=== PATIENT | female | born 1940 | race Caucasian/White ===

== ENCOUNTER 2016-09-23 12:56 | Emergency (ER) | payer MEDICARE ==
[~2016-09-23] VITALS: Ht 160 cm; Wt 90.0 kg
[2016-09-23 12:57] VITALS: BP 198/84; PULSE 56; RESP 15; TEMP 97.7; O2SAT 97
[2016-09-23] MEDS ORDERED: SODIUM CHLORIDE 0.9% FLUSH 5 ML FLUSH IVF PRN (16:00)
--- NOTE | 2016-09-23 16:06 | PD ---
HPI Chief Complaint: Flank/Kidney Pain Time Seen by Provider: 15:57 Travel History International Travel<30 days: No Contact w/Intl Traveler<30days: No Traveled to known affect area: No History of Present Illness HPI Patient is a 76-year-old female with a history of CAD, hypertension, RA on methotrexate presenting with chief complaint of right flank pain. She reports pain mostly in the right sahil-umbilical region intermittently for the last 2 weeks. Seems to be worse with eating especially fatty foods. Pain has been intermittent and "comes in waves ". Minor nausea without vomiting. Over the last several days the pain has begun radiating to the right lower quadrant, epigastrium and the right back and over the last 2 days it has become constant and worsening. The pain is sharp and stretching/tight in nature. Somewhat alleviated by lying flat and standing upright. Worsened by sitting. She denies dysuria, hematuria, increased or any urgency, frequency and vaginal bleeding or discharge. No history of abdominal surgeries. She denies fever and chills. She denies hematochezia, melena, diarrhea and constipation. Patient denies any trauma or injury. She denies any bowel or bladder dysfunction, saddle anesthesia, weakness or paresthesias in her legs. She denies any rashes. She has received shingles vaccine. She is on aspirin daily. Denies chest pain, wheezing, cough, dizziness and syncope. Endorses intermittent mild dyspnea, worse with activity. No pleuritic pain. PFSH Past Medical History Cardiovascular Problems: Yes ([place] 1997) Social History Tobacco Use: No Allergies-Medications (Allergen,Severity, Reaction): Coded Allergies: Morphine (Verified Allergy, Severe, Shortness of Breath, 09/23/16) Reported Meds & Prescriptions Reported Meds & Active Scripts Active Phenergan (Promethazine HCl) 25 Mg Tab 25 Mg PO Q6H PRN Lortab (Hydrocodone-Acetaminophen) 5-325 Mg Tab 1 Tab PO Q6H PRN Reported Vitamin D-3 (Cholecalciferol) 1,000 Unit Cap Turmeric (Turmeric (Curcuma Longa)) Unknown Strength Cap Unknown Dose PO DAILY Coq-10 (Coenzyme Q10 (Ubidecarenone)) Unknown Strength Cap Unknown Dose Fish Oil + D3 (Fish Oil-Cholecalciferol) 1,200-1,000 Mg-Unit Cap 1 Cap PO BID Aspirin 81 Mg Tabdr 81 Mg PO DAILY Metoprolol Tartrate 50 Mg Tab 50 Mg PO BID Pantoprazole (Pantoprazole Sodium) 40 Mg Tab 40 Mg PO DAILY Atorvastatin (Atorvastatin Calcium) 40 Mg Tab 40 Mg PO HS Methotrexate 2.5 Mg Tab 6 Tab PO Q7D Chlorthalidone 25 Mg Tab 25 Mg PO DAILY Losartan (Losartan Potassium) 50 Mg Tab 25 Mg PO BID Review of Systems Except as stated in HPI: all other systems reviewed are Neg Physical Exam Narrative GENERAL: Well-developed and well-nourished adult female in no acute distress. SKIN: Warm and dry. Good turgor without tenting. Evaluation of the thoracic and lumbosacral spine and abdomen and flank reveals no skin lesions. HEAD: Normocephalic and atraumatic. EYES: PERRL bilaterally, 5mm. EOMI bilaterally. No injection or icterus present. No proptosis. Lids without edema or erythema. ENT: Buccal mucosa pink and moist. Oropharynx free of erythema, tonsillar hypertrophy, masses, swelling, asymmetry and exudates. Uvula midline and airway patent. NECK: Supple, no meningeal signs. Trachea midline, no JVD. No cervical or facial lymphadenopathy. CARDIOVASCULAR: Regular rate and rhythm without murmurs, rubs, clicks or gallops. Radial and posterior tibial pulses 2+ bilaterally. No pedal edema. RESPIRATORY: Clear to auscultation bilaterally with symmetrical rise and fall, no distress or use of accessory muscles. GASTROINTESTINAL: Patient is diffusely tender in the epigastrium, right upper quadrant, right flank and right lower quadrant. Equivocal Mckeon sign, there is pain at McBurney's point. Negative Rovsing sign, positive obturator test. No rebound or guarding. No distention or discoloration. Normal bowel sounds all 4 quadrants. No masses or organomegaly present. Negative right CVA tenderness. MUSCULOSKELETAL: Patient freely moving all four extremities spontaneously. Extremities without clubbing, cyanosis, or edema. No obvious deformities. NEUROLOGIC: CN II-XII grossly intact. Awake and alert.Sensation intact L1-S2 bilaterally. Strength 5/5 in hip flexion, hip extension, knee flexion, knee extension, plantar flexion, dorsiflexion, and great toe flexion and extension bilaterally. Bilateral patellar and Achilles DTRs 2+. Downgoing Babinskis bilaterally. Normal speech. PSYCHIATRIC: Appropriate mood and affect; insight and judgment normal. Data Data Last Documented VS Vital Signs Date Time Temp Pulse Resp B/P Pulse Ox O2 Delivery O2 Flow Rate FiO2 09/23/16 20:53 60 15 156/108 97 Room Air 09/23/16 12:57 97.7 Orders Complete Blood Count With Diff (09/23/16 15:53) Comprehensive Metabolic Panel (09/23/16 15:53) Lipase (09/23/16 15:53) Prothrombin Time / Inr (Pt) (09/23/16 15:53) Act Partial Throm Time (Ptt) (09/23/16 15:53) Urinalysis - C+S If Indicated (09/23/16 15:53) Abdomen, Flat & Upright (09/23/16 ) Us Abdomen Gallbladder (09/23/16 ) Ecg Monitoring (09/23/16 15:53) Oximetry (09/23/16 15:53) NPO (09/23/16 15:53) Sodium Chloride 0.9% Flush (Ns Flush) (09/23/16 16:00) Electrocardiogram (09/23/16 15:53) Chest, Single Ap (09/23/16 15:53) B-Type Natriuretic Peptide (09/23/16 15:53) Troponin I (09/23/16 15:53) Cta Thor Abd Aorta W Iv C W3d (09/23/16 ) Hydromorphone Pf Inj (Dilaudid Pf Inj) (09/23/16 20:30) Ondansetron Inj (Zofran Inj) (09/23/16 20:30) Labs Laboratory Tests Test 09/23/16 09/23/16 00:00 18:10 B-Type Natriuretic Peptide 76 PG/ML White Blood Count 6.3 TH/MM3 Red Blood Count 4.18 MIL/MM3 Hemoglobin 12.0 GM/DL Hematocrit 35.9 % Mean Corpuscular Volume 85.9 FL Mean Corpuscular Hemoglobin 28.8 PG Mean Corpuscular Hemoglobin 33.5 % Concent Red Cell Distribution Width 16.7 % Platelet Count 209 TH/MM3 Mean Platelet Volume 8.5 FL Neutrophils (%) (Auto) 48.4 % Lymphocytes (%) (Auto) 36.0 % Monocytes (%) (Auto) 11.3 % Eosinophils (%) (Auto) 3.5 % Basophils (%) (Auto) 0.8 % Neutrophils # (Auto) 3.1 TH/MM3 Lymphocytes # (Auto) 2.3 TH/MM3 Monocytes # (Auto) 0.7 TH/MM3 Eosinophils # (Auto) 0.2 TH/MM3 Basophils # (Auto) 0.1 TH/MM3 CBC Comment DIFF FINAL Differential Comment Prothrombin Time 11.1 SEC Prothromb Time International 1.0 RATIO Ratio Activated Partial 25.2 SEC Thromboplast Time Urine Color YELLOW Urine Turbidity CLEAR Urine pH 6.0 Urine Specific [place] 1.013 Urine Protein NEG mg/dL Urine Glucose (UA) NEG mg/dL Urine Ketones NEG mg/dL Urine Occult Blood NEG Urine Nitrite NEG Urine Bilirubin NEG Urine Urobilinogen LESS THAN 2.0 MG/DL Urine Leukocyte Esterase NEG Urine RBC LESS THAN 1 /hpf Urine WBC LESS THAN 1 /hpf Urine Squamous Epithelial <1 /hpf Cells Microscopic Urinalysis Comment CULT NOT INDICATED Sodium Level 139 MEQ/L Potassium Level 3.7 MEQ/L Chloride Level 100 MEQ/L Carbon Dioxide Level 30.9 MEQ/L Anion Gap 8 MEQ/L Blood Urea Nitrogen 17 MG/DL Creatinine 0.71 MG/DL Estimat Glomerular Filtration 80 ML/MIN Rate Random Glucose 94 MG/DL Calcium Level 9.4 MG/DL Total Bilirubin 0.6 MG/DL Aspartate Amino Transf 16 U/L (AST/SGOT) Alanine Aminotransferase 29 U/L (ALT/SGPT) Alkaline Phosphatase 99 U/L Troponin I LESS THAN 0.02 NG/ML Total Protein 7.4 GM/DL Albumin 3.6 GM/DL Lipase 184 U/L [facility] Medical Decision Making Medical Screen Exam Complete: Yes Emergency Medical Condition: Yes Differential Diagnosis Cholecystitis versus renal calculi versus appendicitis versus gastritis versus peptic ulcer disease versus pyelonephritis versus shingles versus ACS versus CHF versus pneumonia versus AAA Narrative Course Workup initiated in triage. Once a medical bed becomes available patient will be transferred and care assumed by the next provider. Patient's a 76-year-old female with a history of CAD, hypertension and rheumatoid arthritis on methotrexate worsening with right flank pain intermittently for the last several weeks. Over the last several days has begun radiating to the epigastrium, right lower quadrant and right lower back. She is afebrile and nontoxic appearing. She denies any symptoms, diarrhea, constipation and blood in her stool. She said that her nausea without vomiting , pain is worse with eating fatty foods. Equivocal Mckeon sign, patient is pain at the McBurney's point and there is positive obturator test. Epigastric tenderness. No rebound or guarding. There is no rash suggestive of shingles and there is no CVA tenderness or urinary symptoms. She reports dyspnea which is worse with activity but denies chest pain. No cough or fever suggestive of pneumonia. Ordered EKG, chest x-ray, abdominal x-ray, right upper quadrant ultrasound and labs including lipase and troponin pending while patient to be transferred to a medical bed where CT will likely need to be done if no clear etiology is discovered on initial workup. Diagnosis Primary Impression: Abdominal pain Qualified Code: R10.11 - Right upper quadrant abdominal pain Scripts Promethazine (Phenergan)25 Mg Tab25 Mg PO Q6H PRN (Nausea/Vomiting) #20 TAB Ref 0 Prov:Marissa Rodriguez MD 09/23/16 Hydrocodone-Acetaminophen (Lortab)5-325 Mg Tab1 Tab PO Q6H PRN (PAIN) #20 TAB Ref 0 Prov:Marissa Rodriguez MD 09/23/16 Condition: Stable Ethan Ibrahim III Sep 23, 2016 16:06
--- NOTE | 2016-09-23 16:39 | RADRPT ---
EXAM DATE/TIME: 09/23/2016 16:12 [facility] COMPARISON: None. INDICATIONS : Right flank pain for 4 days MEDICAL HISTORY : None. SURGICAL HISTORY : None. ENCOUNTER: Initial ACUITY: 4 - 6 days PAIN SCORE: 8/10 LOCATION: Right flank FINDINGS: Supine and upright views of the abdomen were performed. The abdominal bowel gas pattern is normal. No air fluid levels are seen. No abnormal masses, calcifications, or organomegaly is seen. The visu alized lower lungs are clear. No evidence of free intraperitoneal gas. The osseous structures are g rossly intact scoliosis of the lumbar spine and associated degenerative changes. Right total hip arth roplasty. CONCLUSION: Radiographically benign abdomen without obstruction or pneumoperitoneum. No yvno l/ureteral calculi identified. Martin Blood MD Board Certified Radiologist. This report was verified electronically.
--- NOTE | 2016-09-23 16:45 | RADRPT ---
EXAM DATE/TIME: 09/23/2016 16:10 [facility] COMPARISON: No previous studies available for comparison. INDICATIONS : Chest discomfort, abdominal pain for 4 days MEDICAL HISTORY : Hypertension. SURGICAL HISTORY : None. ENCOUNTER: Initial ACUITY: 4 - 6 days PAIN SCORE: 0/10 LOCATION: Bilateral chest FINDINGS: A single view of the chest demonstrates the lungs to be symmetrically aerated without evidence of mas s, infiltrate or effusion. The cardiomediastinal contours are unremarkable. Osseous structures are intact. CONCLUSION: No acute disease. Ney Vasques MD on September 23, 2016 at 16:43 Board Certified Radiologist. This report was verified electronically.
--- NOTE | 2016-09-23 17:13 | RADRPT ---
EXAM DATE/TIME: 09/23/2016 16:26 [facility] COMPARISON: No previous studies available for comparison. INDICATIONS : Abdominal pain. MEDICAL HISTORY : Myocardial infarction. Hypertension. Arthritis. SURGICAL HISTORY : None. ENCOUNTER: Initial ACUITY: 4-6 days PAIN SCORE: 9/10 LOCATION: Right upper quadrant MEASUREMENTS: LIVER: 15.9 cm length COMMON DUCT: 4 mm RIGHT KIDNEY: 11.8 x 4.5 x 5.2 cm FINDINGS: LIVER: Normal echotexture without focal lesion or ductal dilatation. COMMON DUCT: No intraluminal mass or stone visualized. GALLBLADDER: The examination demonstrates sludge and some small stones within the gallbladder. There is no signifi cant gallbladder wall thickening. There is no pericholecystic fluid. The technologist did report a so nographic Mckeon's sign with the examination. PANCREAS: The visualized portions are within normal limits. RIGHT KIDNEY: No evidence of hydronephrosis, stone, or mass. CONCLUSION: 1. There is sludge within the gallbladder and some small gallstones. There is no para cholecystic flu id or gallbladder wall thickening. The patient did report significant pain consistent with sonographi c Mckeon's sign to the technologist during the examination. HIDA imaging could be performed for more definitive assessment. 2. Examination is otherwise unremarkable. Deejay Thomas MD on September 23, 2016 at 17:08 Board Certified Radiologist. This report was verified electronically.
[2016-09-23] MEDS ORDERED: METH2.5T PO (17:44)
[2016-09-23] MEDS ORDERED: PANT40TA3 PO (17:44)
[2016-09-23] MEDS ORDERED: ATOR40TA16 PO (17:44)
[2016-09-23] MEDS ORDERED: CHLO25TA2 PO (17:44)
[2016-09-23] MEDS ORDERED: METO50TA PO (17:44)
[2016-09-23] MEDS ORDERED: LOSA50TA PO (17:44)
[2016-09-23] MEDS ORDERED: ASPI1TAB69 PO (17:45)
[2016-09-23] MEDS ORDERED: TURM500C PO (17:45)
[2016-09-23] MEDS ORDERED: FISHCAP4 PO (17:45)
[2016-09-23] MEDS ORDERED: COQ-50CA2 (17:45)
[2016-09-23] MEDS ORDERED: CHOL1CAP6 PO (17:45)
[2016-09-23 18:52] LABS: AUTOMATED NEUTROPHIL # 3.1 TH/MM3 (1.8-7.7); BASOPHIL # 0.1 TH/MM3 (0-0.2); BASOPHIL % 0.8 % (0.0-2.0); BLOOD, URINE NEG (NEG); EOSINOPHIL # 0.2 TH/MM3 (0-0.4); EOSINOPHIL % 3.5 % (0.0-4.0); GLUCOSE,URINE NEG (NEG); HEMATOCRIT 35.9 % (35.0-46.0); HEMO FLAGS DIFF FINAL; KETONE, URINE NEG (NEG); LYMPHOCYTE # 2.3 TH/MM3 (1.0-4.8); MEAN CELL VOLUME 85.9 FL (80.0-100.0); MEAN CORPUSCULAR HEMOGLOBIN 28.8 PG (27.0-34.0); MEAN CORPUSCULAR HGB CONC 33.5 % (32.0-36.0); MONO % 11.3 % (0.0-8.0); NEUT % 48.4 % (16.0-70.0); NITRITE,URINE NEG (NEG); PLATELET COUNT 209 TH/MM3 (150-450); RED BLOOD COUNT 4.18 MIL/MM3 (4.00-5.30); RED CELL DISTRIBUTION WIDTH 16.7 % (11.6-17.2); SQUAMOUS EPITHELIAL CELL URINE <1 /hpf (0-5); URINE COLOR YELLOW (YELLW/STRAW); WHITE BLOOD COUNT 6.3 TH/MM3 (4.0-11.0)
[2016-09-23 18:55] LABS: COMMENT (UR) CULT NOT INDICATED; CULTURE IF INDICATED CULT NOT INDICATED
[2016-09-23 19:01] VITALS: BP 158/69; PULSE 60; RESP 15; O2SAT 97
[2016-09-23 19:03] LABS: APTT (PATIENT) 25.2 SEC (24.3-30.1); PROTHROMBIN TIME - PATIENT 11.1 SEC (9.8-11.6)
[2016-09-23 19:07] LABS: ANION GAP 8 MEQ/L (5-15); AST (GOT) 16 U/L (15-37); BICARBONATE 30.9 MEQ/L (21.0-32.0); BLOOD UREA NITROGEN 17 MG/DL (7-18); CHLORIDE 100 MEQ/L (98-107); GLOMERULAR FILTRATION RATE 80 ML/MIN (>89); POTASSIUM 3.7 MEQ/L (3.5-5.1); SODIUM (NA) 139 MEQ/L (136-145)
[2016-09-23 19:12] LABS: ALKALINE PHOSPHATASE 99 U/L (45-117); ALT (GPT) 29 U/L (10-53); TOTAL BILIRUBIN ADULT 0.6 MG/DL (0.2-1.0)
[2016-09-23] MEDS ORDERED: IOHEXOL 350 MG/ML 10 ML VIAL (for RAD DIAG) IV ONE (19:30)
--- NOTE | 2016-09-23 19:39 | PD ---
Physical Exam Time Seen by Provider: 19:00 Data Data Last Documented VS Vital Signs Date Time Temp Pulse Resp B/P Pulse Ox O2 Delivery O2 Flow Rate FiO2 09/23/16 19:01 60 15 158/69 97 Room Air 09/23/16 12:57 97.7 Orders Complete Blood Count With Diff (09/23/16 15:53) Comprehensive Metabolic Panel (09/23/16 15:53) Lipase (09/23/16 15:53) Prothrombin Time / Inr (Pt) (09/23/16 15:53) Act Partial Throm Time (Ptt) (09/23/16 15:53) Urinalysis - C+S If Indicated (09/23/16 15:53) Abdomen, Flat & Upright (09/23/16 ) Us Abdomen Gallbladder (09/23/16 ) Ecg Monitoring (09/23/16 15:53) Oximetry (09/23/16 15:53) NPO (09/23/16 15:53) Sodium Chloride 0.9% Flush (Ns Flush) (09/23/16 16:00) Electrocardiogram (09/23/16 15:53) Chest, Single Ap (09/23/16 15:53) B-Type Natriuretic Peptide (09/23/16 15:53) Troponin I (09/23/16 15:53) Cta Thor Abd Aorta W Iv C W3d (09/23/16 ) Labs Laboratory Tests Test 09/23/16 09/23/16 00:00 18:10 B-Type Natriuretic Peptide 76 PG/ML White Blood Count 6.3 TH/MM3 Red Blood Count 4.18 MIL/MM3 Hemoglobin 12.0 GM/DL Hematocrit 35.9 % Mean Corpuscular Volume 85.9 FL Mean Corpuscular Hemoglobin 28.8 PG Mean Corpuscular Hemoglobin 33.5 % Concent Red Cell Distribution Width 16.7 % Platelet Count 209 TH/MM3 Mean Platelet Volume 8.5 FL Neutrophils (%) (Auto) 48.4 % Lymphocytes (%) (Auto) 36.0 % Monocytes (%) (Auto) 11.3 % Eosinophils (%) (Auto) 3.5 % Basophils (%) (Auto) 0.8 % Neutrophils # (Auto) 3.1 TH/MM3 Lymphocytes # (Auto) 2.3 TH/MM3 Monocytes # (Auto) 0.7 TH/MM3 Eosinophils # (Auto) 0.2 TH/MM3 Basophils # (Auto) 0.1 TH/MM3 CBC Comment DIFF FINAL Differential Comment Prothrombin Time 11.1 SEC Prothromb Time International 1.0 RATIO Ratio Activated Partial 25.2 SEC Thromboplast Time Urine Color YELLOW Urine Turbidity CLEAR Urine pH 6.0 Urine Specific [place] 1.013 Urine Protein NEG mg/dL Urine Glucose (UA) NEG mg/dL Urine Ketones NEG mg/dL Urine Occult Blood NEG Urine Nitrite NEG Urine Bilirubin NEG Urine Urobilinogen LESS THAN 2.0 MG/DL Urine Leukocyte Esterase NEG Urine RBC LESS THAN 1 /hpf Urine WBC LESS THAN 1 /hpf Urine Squamous Epithelial <1 /hpf Cells Microscopic Urinalysis Comment CULT NOT INDICATED Sodium Level 139 MEQ/L Potassium Level 3.7 MEQ/L Chloride Level 100 MEQ/L Carbon Dioxide Level 30.9 MEQ/L Anion Gap 8 MEQ/L Blood Urea Nitrogen 17 MG/DL Creatinine 0.71 MG/DL Estimat Glomerular Filtration 80 ML/MIN Rate Random Glucose 94 MG/DL Calcium Level 9.4 MG/DL Total Bilirubin 0.6 MG/DL Aspartate Amino Transf 16 U/L (AST/SGOT) Alanine Aminotransferase 29 U/L (ALT/SGPT) Alkaline Phosphatase 99 U/L Troponin I LESS THAN 0.02 NG/ML Total Protein 7.4 GM/DL Albumin 3.6 GM/DL Lipase 184 U/L [facility] Medical Record Reviewed: Yes Supervised Visit with ANSELMO: No Interpretation(s) CBC unremarkable CMP unremarkable Prolene, CK within normal limits BNP within normal limits Urinalysis normal Chest x-ray normal Gallbladder ultrasound reveals sludge within the gallbladder and some small gallstones. No pericholecystic fluid or gallbladder wall thickening. The patient did have pain with sonographic Mckeon sign. Hida imaging could be performed for more definitive assessment. CT angiogram CONCLUSION: 1. Mild atherosclerotic change throughout the arterial system but a significant aneurysm or significant abnormality of the aorta is not seen. 2. Minimal suspected atelectasis at the lower lungs being worse on the left. 3. Low density in the central aspect of the uterus which may be related to prominent endometrium. This could be further evaluated with a pelvic ultrasound. This could be performed as an outpatient. 4. No definite acute abnormality is seen. Narrative Course Please see previous providers notes. In summary this is a 76-year-old female whose been having right flank pain that radiates into the right upper portion of her abdomen. Symptoms started a few weeks ago is just mild right flank pain which she described as a soreness. Over the past 3 days he has become more intense now it radiates into the right upper abdomen. Pain is an aching pain that is constant but it is worse after meals. She endorses occasional nausea. Denies any diarrhea or constipation, fevers or chills, dysuria or hematuria, chest pain or shortness of breath, vomiting. She has never had this type of pain before. No history of AAA, no history of kidney stone, no history of gallbladder issues. On examination she has no CVA tenderness that is reproducible palpation. She has right upper quadrant tenderness to palpation. There are no palpable abdominal masses. Lab work, imaging studies were ordered in triage and are currently pending. Declining pain medication on initial examination. Discussed the imaging results with the patient. She understands to follow up with her primary care physician for an ultrasound of the pelvis. Dr. Rodriguez discussed the case with on-call general surgeon Dr. Hollis who would like to see the patient early next week as an outpatient. He also recommends that the patient follow up with a application packaging specialist for endoscopy. Discussed the recommendations with the patient is agreeable. Discussed signs and symptoms of more return to the emergency room such as intractable pain or nausea and vomiting, fevers and she verbalizes understanding. She is stable for discharge. Diagnosis Primary Impression: Biliary colic Referrals: Ney Hollis MD Additional Instruction: Medication as prescribed. Stay well hydrated. Avoid fatty and greasy foods. Follow-up early next week with Dr. Hollis, call his office to make appointment. Return for any acute intractable pain, persistent vomiting, fevers. Med/Other Pt SpecificInfo: Prescription(s) given Scripts Promethazine (Phenergan)25 Mg Tab25 Mg PO Q6H PRN (Nausea/Vomiting) #20 TAB Ref 0 Prov:Marissa Rodriguez MD 09/23/16 Hydrocodone-Acetaminophen (Lortab)5-325 Mg Tab1 Tab PO Q6H PRN (PAIN) #20 TAB Ref 0 Prov:Marissa Rodriguez MD 09/23/16 Disposition: 01 DISCHARGE HOME Condition: Stable Sai Perales Sep 23, 2016 19:39
--- NOTE | 2016-09-23 19:53 | PD ---
Physical Exam Date Seen by Provider: Sep 23, 2016 Narrative Patient is here for right upper quadrant pain Data Data Last Documented VS Vital Signs Date Time Temp Pulse Resp B/P Pulse Ox O2 Delivery O2 Flow Rate FiO2 09/23/16 19:01 60 15 158/69 97 Room Air 09/23/16 12:57 97.7 Orders Complete Blood Count With Diff (09/23/16 15:53) Comprehensive Metabolic Panel (09/23/16 15:53) Lipase (09/23/16 15:53) Prothrombin Time / Inr (Pt) (09/23/16 15:53) Act Partial Throm Time (Ptt) (09/23/16 15:53) Urinalysis - C+S If Indicated (09/23/16 15:53) Abdomen, Flat & Upright (09/23/16 ) Us Abdomen Gallbladder (09/23/16 ) Ecg Monitoring (09/23/16 15:53) Oximetry (09/23/16 15:53) NPO (09/23/16 15:53) Sodium Chloride 0.9% Flush (Ns Flush) (09/23/16 16:00) Electrocardiogram (09/23/16 15:53) Chest, Single Ap (09/23/16 15:53) B-Type Natriuretic Peptide (09/23/16 15:53) Troponin I (09/23/16 15:53) Cta Thor Abd Aorta W Iv C W3d (09/23/16 ) Vascular Poc Ultrasound (09/23/16 ) Labs Laboratory Tests Test 09/23/16 09/23/16 00:00 18:10 B-Type Natriuretic Peptide 76 PG/ML White Blood Count 6.3 TH/MM3 Red Blood Count 4.18 MIL/MM3 Hemoglobin 12.0 GM/DL Hematocrit 35.9 % Mean Corpuscular Volume 85.9 FL Mean Corpuscular Hemoglobin 28.8 PG Mean Corpuscular Hemoglobin 33.5 % Concent Red Cell Distribution Width 16.7 % Platelet Count 209 TH/MM3 Mean Platelet Volume 8.5 FL Neutrophils (%) (Auto) 48.4 % Lymphocytes (%) (Auto) 36.0 % Monocytes (%) (Auto) 11.3 % Eosinophils (%) (Auto) 3.5 % Basophils (%) (Auto) 0.8 % Neutrophils # (Auto) 3.1 TH/MM3 Lymphocytes # (Auto) 2.3 TH/MM3 Monocytes # (Auto) 0.7 TH/MM3 Eosinophils # (Auto) 0.2 TH/MM3 Basophils # (Auto) 0.1 TH/MM3 CBC Comment DIFF FINAL Differential Comment Prothrombin Time 11.1 SEC Prothromb Time International 1.0 RATIO Ratio Activated Partial 25.2 SEC Thromboplast Time Urine Color YELLOW Urine Turbidity CLEAR Urine pH 6.0 Urine Specific [place] 1.013 Urine Protein NEG mg/dL Urine Glucose (UA) NEG mg/dL Urine Ketones NEG mg/dL Urine Occult Blood NEG Urine Nitrite NEG Urine Bilirubin NEG Urine Urobilinogen LESS THAN 2.0 MG/DL Urine Leukocyte Esterase NEG Urine RBC LESS THAN 1 /hpf Urine WBC LESS THAN 1 /hpf Urine Squamous Epithelial <1 /hpf Cells Microscopic Urinalysis Comment CULT NOT INDICATED Sodium Level 139 MEQ/L Potassium Level 3.7 MEQ/L Chloride Level 100 MEQ/L Carbon Dioxide Level 30.9 MEQ/L Anion Gap 8 MEQ/L Blood Urea Nitrogen 17 MG/DL Creatinine 0.71 MG/DL Estimat Glomerular Filtration 80 ML/MIN Rate Random Glucose 94 MG/DL Calcium Level 9.4 MG/DL Total Bilirubin 0.6 MG/DL Aspartate Amino Transf 16 U/L (AST/SGOT) Alanine Aminotransferase 29 U/L (ALT/SGPT) Alkaline Phosphatase 99 U/L Troponin I LESS THAN 0.02 NG/ML Total Protein 7.4 GM/DL Albumin 3.6 GM/DL Lipase 184 U/L MDM Supervised Visit with ANSELMO: Yes Narrative Course I, Dr. Rodriguez, have reviewed the advance practice practitioner's documentation and am in agreement, met with the patient face to face, made the diagnosis, and the medical decision making was done by me. *My assessment and Findings: Patient has a soft abdomen. She does not have uncontrolled emesis. Last Impressions Chest X-Ray 09/23/16 1553 Signed Impressions: Service Date/Time: Friday, September 23, 2016 16:10 - CONCLUSION: No acute disease. Ney Vasques MD Gall Bladder Ultrasound 09/23/16 0000 Signed Impressions: Service Date/Time: Friday, September 23, 2016 16:26 - CONCLUSION: 1. There is sludge within the gallbladder and some small gallstones. There is no para cholecystic fluid or gallbladder wall thickening. The patient did report significant pain consistent with sonographic Mckeon's sign to the technologist during the examination. HIDA imaging could be performed for more definitive assessment. 2. Examination is otherwise unremarkable. Deejay Thomas MD Abdomen X-Ray 09/23/16 0000 Signed Impressions: Service Date/Time: Monday, September 23, 2016 16:12 - CONCLUSION: Radiographically benign abdomen without obstruction or pneumoperitoneum. No renal/ureteral calculi identified. Martin Blood MD CBC & BMP Diagram 09/23/16 18:10 LFTs are normal. Lipase is normal. Physician Communication Physician Communication Case discussed with Dr. Hollis who will see her as an outpatient. Does recommend that she also be seen by GI. Diagnosis Primary Impression: Gallbladder sludge Marissa Rodriguez MD Sep 23, 2016 19:53
--- NOTE | 2016-09-23 20:17 | RADRPT ---
EXAM DATE/TIME: 09/23/2016 19:30 [place] COMPARISON: No previous studies available for comparison. INDICATIONS : RLQ and epigastric pain for 2 days. IV CONTRAST: 99 cc Omnipaque 350 (iohexol) IV RADIATION DOSE: 15.37 CTDIvol (mGy) MEDICAL HISTORY : Hypertension. Cardiovascular disease Gastroesophageal reflux disease. SURGICAL HISTORY : Tubal ligation. Right hip surgery. ENCOUNTER: Initial ACUITY: 2 days PAIN SCALE: 7/10 LOCATION: Right lower quadrant Abdomen/pelvis TECHNIQUE: Volumetric scanning was performed using a multi-row detector CT scanner. The data was post processed with a variety of visualization algorithms including full volume maximum intensity pr ojection, multi-planar sliding thin slab reformation, curved planar reformation, and surface renderin g techniques. Using automated exposure control and adjustment of the mA and/or kV according to patie nt size, radiation dose was kept as low as reasonably achievable to obtain optimal diagnostic quality images. FINDINGS: The thoracic and abdominal aorta are intact. There are scattered atherosclerotic calcif ications seen throughout the arterial system but no significant aneurysm is seen. The left common ca rotid artery arises from the right brachiocephalic artery. This is a normal variant. Significant ost ial narrowing at the aortic arch is not seen. The celiac, SMA and MATT are patent. Single renal fidel sukh are identified bilaterally which appear patent. The arterial structures within the pelvis and u pper thigh are unremarkable. There is some vague density seen at the lower lobes bilaterally being m ore prominent on the left likely related to some mild atelectasis. There is a splenule seen at the p osterior medial aspect of the spleen. There is some low density seen centrally in the uterus which co uld be related to some prominent endometrium. This could be followed up with an ultrasound of the pel vis as an outpatient. 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 There is very prominent degen erative change in the lumbar spine. CONCLUSION: 1. Mild atherosclerotic change throughout the arterial system but a significant aneurysm or significa nt abnormality of the aorta is not seen. 2. Minimal suspected atelectasis at the lower lungs being worse on the left. 3. Low density in the central aspect of the uterus which may be related to prominent endometrium. Thi s could be further evaluated with a pelvic ultrasound. This could be performed as an outpatient. 4. No definite acute abnormality is seen. Ethan Paredes MD on September 23, 2016 at 20:05 Board Certified Radiologist. This report was verified electronically.
[2016-09-23] MEDS ORDERED: HYDR-3533 PO (20:28)
[2016-09-23] MEDS ORDERED: PROM25TA5 PO (20:28)
[2016-09-23] MEDS ORDERED: HYDROmorphone HCL PF 1 MG/ML VIAL IV PUSH ONE (20:30)
[2016-09-23] MEDS ORDERED: ONDANSETRON HCL 4 MG/2 ML VIAL IV PUSH ONE (20:30)
[2016-09-23 20:53] VITALS: BP 156/108; PULSE 60; RESP 15; O2SAT 97
--- NOTE | 2016-09-24 16:40 | EKG ---
Date Performed: 09/23/2016 Time Performed: 16:58:23 PTAGE: 76 years EKG: SINUS BRADYCARDIA WITH sinus arrhythmia When compared to previous tracing, sinus arrhythmia is new. ABNORMAL ECG PREVIOUS TRACING : 09/30/2003 09.13 DOCTOR: Martín Pinedo Interpretating Date/Time 09/24/2016 16:38:37
[2016-10-03] MEDS ORDERED: COQ-100C2 PO (15:52)
[2016-10-03] MEDS ORDERED: TURM500C PO (15:52)
[2016-10-03] MEDS ORDERED: GABA100C4 PO (16:13)
[2016-12-29] MEDS ORDERED: ASPI81CH PO (14:40)
[2016-12-29] MEDS ORDERED: PROT40TA PO (14:40)
[2016-12-29] MEDS ORDERED: UBID50CA4 PO (14:40)
[2016-12-29] MEDS ORDERED: TURM500C3 PO (14:40)
== END 2016-09-23 21:00 | disposition home or self-care (01) ==
LOC: NEPC 12:56
DX: K80.50 Calculus of bile duct without cholangitis or cholecystitis without obstruction (principal); K82.8 Other specified diseases of gallbladder; R10.11 Right upper quadrant pain; M54.5 Low back pain; R11.0 Nausea; R06.00 Dyspnea, unspecified; R94.31 Abnormal electrocardiogram [ECG] [EKG]; I10 Essential (primary) hypertension; I25.10 Atherosclerotic heart disease of native coronary artery without angina pectoris; M06.9 Rheumatoid arthritis, unspecified; I25.2 Old myocardial infarction
CPT/HCPCS: 71010; 71275; 74020; 74174; 76705; 80053; 81001; 83690; 83880; 84484; 85025; 85610; 85730; 93005; 96374; 96375; 99285; J1170; J2405; Q9967

== ENCOUNTER → 2016-10-05 | Day surgery (SDC) | payer MEDICARE ==
[~2016-10-05] VITALS: Ht 157.5 cm; Wt 90.3 kg
[~2016-10-05] MED LIST: *HYDROmorphone PF 1 MG VIAL PERIprocedural Use ONLY ONE; ACETAMINOPHEN 1000 MG/100 ML VIAL IV SCH; ASPI1TAB69 PO; ASPI81CH PO; ATOR40TA16 PO; BUPIVACAINE/EPINEPHRINE 0.25% PF 30 ML VIAL ONE; CHLO25TA2 PO; CHOL1CAP6 PO; COQ-100C2 PO; DICLOFENAC SODIUM 37.5 MG/ML VIAL IV PUSH ONE; DO NOT ADM ANY ANTICOAGULANT DRUGS XX PRN; FISHCAP4 PO; GABA100C4 PO; HYDR-3533 PO; INSULIN HUMAN REGULAR 1,000 UNITS/10 ML VIAL SQ PRN; LACTATED RINGER'S 1000 ML IV SCH; LOSA50TA PO; METH2.5T PO; METO50TA PO; METOPROLOL TARTRATE 25 MG TAB PO PRN; MIDAZOLAM HCL 2 MG/2 ML VIAL ONE; NEOSTIGMINE 3 MG/3 ML SYR IV ONE; ONDANSETRON HCL 4 MG/2 ML VIAL IV PRN; ONDANSETRON HCL 4 MG/2 ML VIAL IV PUSH ONE; PANT40TA3 PO; PROM25TA5 PO; PROPOFOL 200 MG/20 ML AMP IV ONE; PROT40TA PO; SODIUM CHLORID 0.9% 500 ML IV SCH; SODIUM CHLORIDE 5 ML FLUSH PRN IVF; TURM500C PO; TURM500C3 PO; UBID50CA4 PO; ULTR50TA5 PO; ceFAZolin 2 GM PREMIX 50 ML ONE; fentaNYL CITRATE 250 MCG/5 ML AMP ONE; metroNIDAZOLE 500 MG INJ 100 ML IV ONE; oxyCODONE/ACETAMINOPHEN 5 MG/325 MG TAB PO PRN
[2016-10-05 07:16] VITALS: BP 147/59; PULSE 66; RESP 20; TEMP 98; O2SAT 97
[2016-10-05 10:56] VITALS: BP 138/69; PULSE 57; RESP 18; TEMP 96.8; O2SAT 99
--- NOTE | 2016-10-05 12:46 | MP ---
cc: EFE CRUZ DATE OF SURGERY 10/05/2016 PREOPERATIVE DIAGNOSIS Symptomatic cholelithiasis POSTOPERATIVE DIAGNOSIS Symptomatic cholelithiasis PROCEDURE Laparoscopic cholecystectomy SURGEON Efe Cruz MD ANESTHESIA General endotracheal anesthesia ESTIMATED BLOOD LOSS Scant FINDINGS Distended gallbladder SPECIMEN Gallbladder COMPLICATIONS None OPERATION The patient was brought to the operating room and placed on the operating table in a supine position. A bilateral sequential inflation device was placed on the lower extremities. General anesthesia was instituted, antibiotics initiated. The abdomen was prepped and draped sterilely. A point in the periumbilical region was anesthetized with 0.25% Marcaine with epinephrine. A skin incision was made. A 5 mm Optiview port was placed under direct vision, a pneumoperitoneum created. Under direct vision a 12 mm subxiphoid and two 5 mm right upper quadrant ports were placed. Prior to placement of all ports the skin and peritoneum were anesthetized with 0.25% Marcaine with epinephrine. The patient was placed in reverse Trendelenburg position, right side up. The gallbladder was retracted into the upper abdomen. The infundibulum was retracted. Calot's triangle was opened. The hepatoduodenal ligament was incised. The cystic artery was identified. It was circumferentially dissected with the Harmonic scalpel and then divided with the Harmonic scalpel. The cystic duct was identified, circumferentially dissected and divided with the Harmonic scalpel. The gallbladder was removed from the liver bed using the Harmonic scalpel. It was retrieved from the peritoneal cavity in an Endopouch through the 12 mm port site. The operative site was inspected. Hemostasis was present. There was no evidence of bile leak. CO2 was released. All ports were removed. All skin incisions were closed with 4-0 Monocryl. The abdominal wall was cleaned and a sterile dressing placed. The patient was awakened and taken to the recovery room. MD JOHANNE Caraballo/LIANG /9:12 AM /12:44 PM
== END | disposition home or self-care (01) ==
LOC: HSDC 05:54
PROVIDERS: ATTEND Surgery
DX: K80.10 Calculus of gallbladder with chronic cholecystitis without obstruction (principal); I10 Essential (primary) hypertension
CPT/HCPCS: 00790; 47562; 88304; J0131; J0690; J1130; J1170; J2250; J2405; J2710; J3010; J7120

== ENCOUNTER → 2016-10-24 | Day surgery (SDC) | payer MEDICARE ==
[~2016-10-24] MED LIST changes: -*HYDROmorphone PF 1 MG VIAL PERIprocedural Use ONLY ONE; -ACETAMINOPHEN 1000 MG/100 ML VIAL IV SCH; -BUPIVACAINE/EPINEPHRINE 0.25% PF 30 ML VIAL ONE; -DICLOFENAC SODIUM 37.5 MG/ML VIAL IV PUSH ONE; -DO NOT ADM ANY ANTICOAGULANT DRUGS XX PRN; -INSULIN HUMAN REGULAR 1,000 UNITS/10 ML VIAL SQ PRN; +LACTATED RINGER'S 1000 ML INJ 1,000 ML ONE; -LACTATED RINGER'S 1000 ML IV SCH; -METOPROLOL TARTRATE 25 MG TAB PO PRN; -NEOSTIGMINE 3 MG/3 ML SYR IV ONE; -ONDANSETRON HCL 4 MG/2 ML VIAL IV PRN; -SODIUM CHLORID 0.9% 500 ML IV SCH; -SODIUM CHLORIDE 5 ML FLUSH PRN IVF; -ceFAZolin 2 GM PREMIX 50 ML ONE; +ceFAZolin INJ 1,000 MG VIAL ONE; -fentaNYL CITRATE 250 MCG/5 ML AMP ONE; -metroNIDAZOLE 500 MG INJ 100 ML IV ONE; -oxyCODONE/ACETAMINOPHEN 5 MG/325 MG TAB PO PRN
--- NOTE | 2016-10-24 16:03 | MP ---
cc: NOLAN MUNGUIA DATE OF SURGERY 10/24/2016 PREOPERATIVE DIAGNOSIS Postmenopausal bleeding, thickened endometrium. POSTOPERATIVE DIAGNOSIS Postmenopausal bleeding, thickened endometrium. PROCEDURE Hysteroscopy, dilation and curettage. SURGEON Nolan Munguia MD. ANESTHESIA General. ESTIMATED BLOOD LOSS 30 cc. COMPLICATIONS None. FINDINGS The patient had a uterus that was unremarkable on hysteroscopy except for a benign 2-3 mm size polyp just in the upper cervical lower uterine segment portion of the uterus. DESCRIPTION OF PROCEDURE The patient taken to the operating room and following general anesthesia was placed in dorsal lithotomy position. Her vagina, abdomen and perineum were prepped and draped. Cervix was grasped with a single-tooth tenaculum and dilated with Bradley dilators to allow passage of the hysteroscope. The cervix was quite stenotic. The findings were as noted above. The endometrial cavity lining appeared atrophic and benign. No distinct lesions were seen except for extremely small polyp which could not be grasped separately. We therefore scraped that area quite extensively and all tissue was sent to pathology. With no other pathology present and bleeding scant all instruments removed. The patient taken to the recovery room in good condition with all counts correct. She will be discharged home when stable and alert to be followed up in one week in our office. Discharge medication is Percocet. She is given instructions on physical activity, instructed to resume a regular diet as tolerated. Nolan Munguia MD TGS/KK /9:14 AM /3:53 PM
== END | disposition home or self-care (01) ==
LOC: ESDC 07:16
PROVIDERS: ATTEND Obstetrics & Gynecology
DX: N95.0 Postmenopausal bleeding (principal); R93.8 Abnormal findings on diagnostic imaging of other specified body structures
CPT/HCPCS: 00952; 58558; 88305; J0690; J2250; J2405; J3010; J7120

== ENCOUNTER → 2016-12-29 | Outpatient (CLI) | payer MEDICARE ==
[~2016-12-29] MED LIST changes: -LACTATED RINGER'S 1000 ML INJ 1,000 ML ONE; -MIDAZOLAM HCL 2 MG/2 ML VIAL ONE; -ONDANSETRON HCL 4 MG/2 ML VIAL IV PUSH ONE; -PROPOFOL 200 MG/20 ML AMP IV ONE; -ceFAZolin INJ 1,000 MG VIAL ONE
[2016-12-29 12:06] LABS: BASOPHIL # 0.1 TH/MM3 (0-0.2); BASOPHIL % 1.3 % (0.0-2.0); EOSINOPHIL # 0.2 TH/MM3 (0-0.4); EOSINOPHIL % 3.1 % (0.0-4.0); HEMATOCRIT 34.8 % (35.0-46.0); HEMO FLAGS DIFF FINAL; LYMPH % 23.9 % (9.0-44.0); LYMPHOCYTE # 1.5 TH/MM3 (1.0-4.8); MEAN CORPUSCULAR HEMOGLOBIN 28.6 PG (27.0-34.0); MEAN CORPUSCULAR HGB CONC 32.5 % (32.0-36.0); MONO % 10.2 % (0.0-8.0); NEUT % 61.5 % (16.0-70.0); PLATELET COUNT 206 TH/MM3 (150-450); RED BLOOD COUNT 3.96 MIL/MM3 (4.00-5.30); RED CELL DISTRIBUTION WIDTH 16.3 % (11.6-17.2); WHITE BLOOD COUNT 6.5 TH/MM3 (4.0-11.0)
[2016-12-29 12:15] LABS: APTT (PATIENT) 23.6 SEC (24.3-30.1); PROTHROMBIN TIME - PATIENT 10.7 SEC (9.8-11.6)
[2016-12-29 12:31] LABS: ALT (GPT) 37 U/L (10-53); ANION GAP 5 MEQ/L (5-15); AST (GOT) 22 U/L (15-37); BICARBONATE 32.2 MEQ/L (21.0-32.0); BLOOD UREA NITROGEN 16 MG/DL (7-18); CHLORIDE 107 MEQ/L (98-107); GLOMERULAR FILTRATION RATE 94 ML/MIN (>89); GLUCOSE,FASTING 99 MG/DL (74-99); SODIUM (NA) 144 MEQ/L (136-145)
[2016-12-29 12:33] LABS: ALKALINE PHOSPHATASE 103 U/L (45-117); TOTAL BILIRUBIN ADULT 0.5 MG/DL (0.2-1.0)
== END ==
LOC: CPRE 09:46
PROVIDERS: ATTEND Obstetrics & Gynecology Gynecologic Oncology
DX: Z01.810 Encounter for preprocedural cardiovascular examination (principal); Z01.811 Encounter for preprocedural respiratory examination; Z01.812 Encounter for preprocedural laboratory examination; N85.00 Endometrial hyperplasia, unspecified
CPT/HCPCS: 36415; 80053; 85025; 85610; 85730

== ENCOUNTER 2017-01-05 05:30 | Observation (INO) | payer MEDICARE ==
[~2017-01-05] VITALS: Ht 157.5 cm; Wt 91.4 kg
[~2017-01-05 05:30] MED LIST changes: -ASPI1TAB69 PO; -COQ-100C2 PO; -HYDR-3533 PO; -PANT40TA3 PO; -PROM25TA5 PO; -TURM500C PO; -ULTR50TA5 PO
[2017-01-05] MEDS ORDERED: ceFAZolin 2 GM PREMIX 50 ML IV SCH (06:00)
[2017-01-05] MEDS ORDERED: CHLORHEXIDINE GLUCONATE 2 % 1 PACK (2 CLOTHS) TOPICAL PRN (06:00)
[2017-01-05] MEDS ORDERED: INSULIN HUMAN REGULAR 1,000 UNITS/10 ML VIAL SQ PRN (06:00)
[2017-01-05] MEDS ORDERED: POVIDONE IODINE 5% (ANTISEPSIS KIT) 4 APPLICATIONS EACH NARE PRN (06:00)
[2017-01-05] MEDS ORDERED: LACTATED RINGER'S 1000 ML IV PRN (06:00)
[2017-01-05] MEDS ORDERED: HEPARIN SODIUM - SQ 10,000 UNITS/ML VIAL SQ SCH (06:00)
[2017-01-05] MEDS ORDERED: METOPROLOL TARTRATE 25 MG TAB PO PRN (06:00)
[2017-01-05] MEDS ORDERED: SODIUM CHLORID 0.9% 500 ML IV PRN (06:00)
[2017-01-05 06:29] VITALS: BP 162/78; PULSE 64; RESP 18; TEMP 97.9; O2SAT 96
[2017-01-05] MEDS ORDERED: SUGAMMADEX SODIUM 200 MG/2 ML VIAL IV PUSH ONE ×2 (07:19)
[2017-01-05] MEDS ORDERED: DEXAMETHASONE SOD PHOS 4 MG/ML VIAL ONE (07:19)
[2017-01-05] MEDS ORDERED: MIDAZOLAM HCL 2 MG/2 ML VIAL ONE (07:19)
[2017-01-05] MEDS ORDERED: FAMOTIDINE 20 MG/2 ML VIAL ONE (07:19)
[2017-01-05] MEDS ORDERED: ACETAMINOPHEN 1000 MG/100 ML VIAL IV ONE (07:19)
[2017-01-05] MEDS ORDERED: HYDROmorphone HCL PF 2 MG/ML VIAL ONE (07:19)
[2017-01-05] MEDS ORDERED: HYDROCORTISONE SOD SUCCINATE 100 MG VIAL ONE (07:20)
[2017-01-05] MEDS ORDERED: LIDOCAINE 1%/EPINEPHrine 1:100,000 SOLN 30 ML VIAL INFIL ONE (08:48)
--- NOTE | 2017-01-05 09:46 | EKG ---
Date Performed: 01/05/2017 Time Performed: 07:02:46 PTAGE: 76 years EKG: Sinus rhythm WITH FREQUENT VENTRICULAR PREMATURE COMPLEXES ABNORMAL RHYTHM ECG PREVIOUS TRACING : 09/23/2016 16.58 Compared to the previous tracing, PVCs are now noted DOCTOR: Brennan Vega Interpretating Date/Time 01/05/2017 09:45:59
[2017-01-05] MEDS ORDERED: fentaNYL CITRATE 250 MCG/5 ML AMP ONE (09:58)
[2017-01-05] MEDS ORDERED: METHYLENE BLUE 10 MG/ML VIAL OTHER ONE (10:24)
[2017-01-05] MEDS ORDERED: ONDANSETRON HCL 4 MG/2 ML VIAL IVP PRN (10:45)
[2017-01-05] MEDS ORDERED: SODIUM CHLORIDE 0.9% FLUSH 10 ML FLUSH IV FLUSH PRN (10:45)
[2017-01-05] MEDS ORDERED: LORazepam 0.5 MG TAB PO PRN (10:45)
[2017-01-05] MEDS ORDERED: DO NOT ADM ANY ANTICOAGULANT DRUGS PRN (11:15)
[2017-01-05] MEDS: D5-1/2 NS + KCL 20 MEQ INJ 1,000 ML IV SCH ×2 (11:16→20:48)
[2017-01-05] MEDS ORDERED: PILL SPLITTER OTHER PRN (11:30)
[2017-01-05] MEDS ORDERED: *HYDROmorphone PF 1 MG VIAL PERIprocedural Use ONLY ONE (11:34)
[2017-01-05] MEDS: KETOROLAC TROMETHAMINE 30 MG/ML (IVP) VIAL IVP SCH ×3 (11:39→23:09)
[2017-01-05] MEDS ORDERED: PHENYLEPH/NS 1000 MCG/10 ML SYR IV ONE (12:00)
[2017-01-05] MEDS ORDERED: HYDROCORTISONE SOD SUCCINATE 100 MG VIAL IV ONE (12:00)
[2017-01-05] MEDS ORDERED: NORMOSOL R INJ 2,000 ML IV ONE (12:00)
[2017-01-05] MEDS ORDERED: ONDANSETRON HCL 4 MG/2 ML VIAL IV PUSH ONE (12:00)
[2017-01-05] MEDS ORDERED: VECURONIUM BROMIDE 20 MG VIAL IV ONE (12:00)
[2017-01-05] MEDS ORDERED: ePHEDrine/NS 25 MG/5 ML SYR IV ONE (12:00)
[2017-01-05] MEDS ORDERED: PROPOFOL 200 MG/20 ML AMP IV ONE (12:00)
[2017-01-05 15:00] VITALS: BP 149/68; PULSE 68; RESP 20; TEMP 96.6; O2SAT 96
--- NOTE | 2017-01-05 16:00 | PD.ONC.PN ---
Subjective Subjective Remarks post op note pt is resting in bed no complaints pain controlled Objective Data Date Time Temp Pulse Resp B/P Pulse Ox O2 Delivery O2 Flow Rate FiO2 01/05/17 14:00 98.6 66 14 160/74 99 Nasal Cannula 2 01/05/17 13:00 57 14 154/70 99 Nasal Cannula 2 01/05/17 12:15 57 12 158/68 98 Nasal Cannula 3 01/05/17 12:00 58 12 147/65 99 Nasal Cannula 3 01/05/17 11:45 57 10 146/66 99 Nasal Cannula 3 01/05/17 11:30 63 10 148/56 99 Nasal Cannula 4 Arterial Line 01/05/17 11:15 64 11 142/63 100 Nasal Cannula 4 150/57 01/05/17 11:00 70 12 158/64 99 Nasal Cannula 4 147/56 01/05/17 10:55 97.7 66 13 156/69 99 Simple Mask 10 157/54 Manual Cuff/Palpation 01/05/17 06:29 97.9 64 18 162/78 96 01/05/17 01/05/17 01/05/17 07:00 15:00 23:00 Intake Total 2798 ml Output Total 1725 ml Balance 1073 ml Laboratory Results Laboratory Tests Test 01/05/17 06:25 Blood Type A POSITIVE Antibody Screen NEGATIVE Blood Bank Comment Administered Medications Medications (Trade) Dose Ordered Sig/Mary Route PRN Reason Start Time Stop Time Status Last Admin Dose Admin Lactated Ringer's 1,000 ml @ 30 mls/hr Q24H PRN IV SEE LABEL COMMENTS 01/05/17 06:00 01/08/17 05:59 01/05/17 06:00 Potassium Chloride/Dextrose/ Sod Cl (D5-1/2 NS + KCl 20 Meq Inj) 1,000 ml @ 100 mls/hr Q10H IV 01/05/17 10:44 01/05/17 11:16 Ketorolac Tromethamine (Toradol Inj) 15 mg Q6H IVP 01/05/17 12:00 01/06/17 06:01 01/05/17 11:39 Objective Remarks GENERAL: Well-nourished, well-developed patient. SKIN: Warm and dry. HEAD: Normocephalic. EYES: No scleral icterus. No injection or drainage. CARDIOVASCULAR: Regular rate and rhythm without murmurs. RESPIRATORY: Breath sounds equal bilaterally. No accessory muscle use. GASTROINTESTINAL: Abdomen soft, SS are c/d/i EXTREMITIES: No cyanosis, or edema. MUSCULOSKELETAL: Teds and SCDs NEUROLOGICAL: No obvious focal deficit. Awake, alert, and oriented x3. PSYCHIATRIC: Appropriate mood and affect; insight and judgment normal. Assessment/Plan Problem List: (1) Post-operative state Status: Acute Plan: s/p RA lap hyst with BSO post op orders in chart pain meds per EMR scheduled Toradol ADAT, clear liquids now OOB to chair D/C beth in AM and anticipate discharge home in next 24 hours Aida Francisco Jan 05, 2017 16:00
[2017-01-05] MEDS: traMADol HCL 50 MG TAB PO PRN ×2 (18:15→22:05)
[2017-01-05 20:00] VITALS: BP 139/65; PULSE 71; RESP 18; TEMP 97.1; O2SAT 98
[2017-01-05] MEDS: GABAPENTIN 100 MG CAP PO SCH (20:45)
[2017-01-05] MEDS: LOSARTAN 25 MG TAB PO SCH (20:45)
[2017-01-05] MEDS: SODIUM CHLORIDE 0.9% FLUSH 10 ML FLUSH IV FLUSH SCH (20:49)
[2017-01-05] MEDS ORDERED: ATORVASTATIN 40 MG TAB PO SCH (21:00)
[2017-01-06] VITALS: BP 158/69; PULSE 64; RESP 18; TEMP 97.4; O2SAT 98
[2017-01-06] MEDS: traMADol HCL 50 MG TAB PO PRN ×2 (02:38→06:20)
[2017-01-06 04:00] VITALS: BP 144/60; PULSE 54; RESP 15; TEMP 96.6; O2SAT 96
[2017-01-06] MEDS: D5-1/2 NS + KCL 20 MEQ INJ 1,000 ML IV SCH (06:01)
[2017-01-06] MEDS: KETOROLAC TROMETHAMINE 30 MG/ML (IVP) VIAL IVP SCH (06:01)
[2017-01-06] MEDS ORDERED: ULTR50TA5 PO (07:03)
[2017-01-06] MEDS: SODIUM CHLORIDE 0.9% FLUSH 10 ML FLUSH IV FLUSH SCH (07:38)
[2017-01-06 08:00] VITALS: BP 134/60; PULSE 61; RESP 18; TEMP 96.3; O2SAT 94
[2017-01-06 08:03] VITALS: O2SAT 94
[2017-01-06] MEDS: GABAPENTIN 100 MG CAP PO SCH (08:12)
[2017-01-06] MEDS: LOSARTAN 25 MG TAB PO SCH (08:14)
[2017-01-06 08:30] LABS: AUTOMATED NEUTROPHIL # 5.8 TH/MM3 (1.8-7.7); BASOPHIL % 0.3 % (0.0-2.0); EOSINOPHIL # 0.1 TH/MM3 (0-0.4); EOSINOPHIL % 1.7 % (0.0-4.0); HEMATOCRIT 30.5 % (35.0-46.0); HEMO FLAGS DIFF FINAL; LYMPH % 16.2 % (9.0-44.0); LYMPHOCYTE # 1.3 TH/MM3 (1.0-4.8); MEAN CELL VOLUME 86.9 FL (80.0-100.0); MEAN CORPUSCULAR HEMOGLOBIN 29.6 PG (27.0-34.0); MEAN CORPUSCULAR HGB CONC 34.1 % (32.0-36.0); MONO % 9.3 % (0.0-8.0); NEUT % 72.5 % (16.0-70.0); PLATELET COUNT 178 TH/MM3 (150-450); RED CELL DISTRIBUTION WIDTH 16.4 % (11.6-17.2)
[2017-01-06 08:51] LABS: BICARBONATE 29.2 MEQ/L (21.0-32.0); POTASSIUM 3.9 MEQ/L (3.5-5.1)
[2017-01-06] MEDS ORDERED: METOPROLOL TARTRATE 25 MG TAB PO SCH (09:00)
[2017-01-06] MEDS ORDERED: PANTOPRAZOLE SOD 40 MG DELAYED RELEASE TAB PO SCH (09:00)
[2017-01-06] MEDS ORDERED: CHLORTHALIDONE 50 MG TAB PO SCH (09:00)
--- NOTE | 2017-01-06 20:41 | MP ---
cc: XIANG MYERS DONALD G. M.D. MOLPUS, KELLY L. MD DATE OF SURGERY: 01/05/2017. PREOPERATIVE DIAGNOSIS: 1. Endometrial mass. 2. Postmenopausal bleeding. 3. Cervical stenosis. POSTOPERATIVE DIAGNOSIS: 1. Endometrial mass. 2. Postmenopausal bleeding. 3. Cervical stenosis. 4. Endometrial polyp. OPERATIVE PROCEDURE PERFORMED: Robotic-assisted laparoscopic hysterectomy and bilateral salpingo-oophorectomy. SURGEON: Sayra Abbott MD. DEVELOPMENT INTERN: [place] data entry assistant. ANESTHESIA: General endotracheal anesthesia. ESTIMATED BLOOD LOSS: Estimated blood loss 300 mL. IV FLUIDS: 2300 mL URINE OUTPUT: 1000 mL. HISTORY: This is a 76-year-old female with intermittent postmenopausal bleeding. Imaging showed a mass-like effect in the endometrium measuring approximately 3 cm; it appeared vascular on imaging. Outpatient biopsies and D&C did not reveal cancer. The amount of tissue obtained was minimal such that it was interpreted as possibly nondiagnostic and under anesthesia exam was required due to cervical stenosis which was able to be overcome with dilators. She has been counseled regarding these findings and concern about a possible malignancy. She continues to have intermittent bleeding. She wants definitive treatment and was in favor of hysterectomy. She was seen in the preop holding area where these findings were again discussed. Plans were reviewed and recommended and she expressed good understanding and wished to proceed. FINDINGS: Uterine cavity sounded to 8 cm. The tubes and ovaries grossly appeared normal. She was status post prior tubal ligation. There was fairly prominent pelvic vasculature, uterine vasculature, prominent vessels to the bladder and surrounding tissue. The uterus once removed showed an approximately 3-cm benign-appearing polyp. No evidence of malignancy and no other significant abnormality. DESCRIPTION OF THE PROCEDURE IN DETAIL: The patient was taken to the operating room and placed in dorsal lithotomy position after general endotracheal anesthesia was administered. A time-out was undertaken. The patient was identified by sight recognition and hospital ID bracelet and the proposed procedure was reviewed and confirmed. She was carefully positioned in padded Dominick stirrups. Her arms were padded and secured to the sides. She was further secured to the operating table with egg crate padding tape in a cross chest over the shoulder fashion. All sites were noted be properly aligned with no malalignments or pressure points. She was prepped in sterile fashion, draped below the waist, and placed in lithotomy position. The cervix was grasped. The uterine cavity sounded. The cervix dilated. A large V-Care manipulator was inserted and secured in the usual fashion. Oliver catheter placed in the bladder. She was returned to low lithotomy position. Change of sterile gloves was undertaken. We completed draping in anticipation of laparoscopy and confirmed that an orogastric tube was in the stomach on suction. With manual elevation of the abdominal wall, a 5 mm cannula introduced into the left upper abdomen. Carbon dioxide gas was insufflated and atraumatic entry was confirmed. Under laparoscopic visualization, a 10 mm cannula placed in midline above the umbilicus, an 8 mm cannula placed in the right upper quadrant and the left lateral quadrant and the original 5 exchanged for an 8-mm cannula. She was placed in steep Trendelenburg position. Peritoneal washings were obtained for cytology. The anatomy was reviewed with findings as described above. Also noted there was no overt adenopathy. No peritoneal implants or nodularity. The robotic system was brought into the operative field and attached in the usual fashion. Monopolar scissors, fenestrated bipolar forceps and Prograsp manipulators were placed in arms one, two and three, respectively, and I took my place at the surgeon's console. It is noted that three Ray-Georgette sponges had been placed around the root of the small bowel mesentery to help hold them in position. The right round ligament was isolated, cauterized and transected. The anterior and posterior leafs of the broad ligament were opened. The right ureter was identified. The right infundibulopelvic ligament was isolated. The intervening peritoneum was opened. The infundibulopelvic ligament was cauterized at the level of the pelvic brim and transected. Posterior peritoneum opened along the right side of the uterus and cervix and the right vesicouterine peritoneum dissected off the lower uterine segment and cervix. The uterine vessels were skeletonized and cauterized. Attention was directed toward the left side where the left round ligament was isolated, cauterized and transected. The anterior and posterior leafs of the broad ligament were opened. Some adhesions were taken down to mobilize the colon. The left ureter was identified. The left infundibulopelvic ligament was isolated. The intervening peritoneum was opened. The infundibulopelvic ligament was cauterized and transected. The posterior peritoneum was opened along the left side of uterus and cervix and the left vesicouterine peritoneum dissected off the lower uterine segment and cervix. The left uterine vessels were skeletonized and cauterized. Now the uterine vessels were transected as were the cardinal, paracervical and uterosacral ligaments that were isolated, cauterized and transected in a stepwise fashion thereby freeing the attachments along the left side of the uterus and cervix. Attention was redirected toward the right side where now the uterine vessels were transected. The cardinal, paracervical and uterosacral ligaments were isolated, cauterized and transected in a stepwise fashion freeing attachments along the right side of the uterus and cervix. Circumferential colpotomy was performed the cervix from the upper vagina. The specimen was withdrawn transvaginally which included uterus, cervix, tubes and ovaries. A Pneumooccluder balloon was placed in the vagina to maintain pneumoperitoneum. Instruments one and three exchanged for needle driver starting gate as a 0 Vicryl suture was introduced. The vaginal cuff was closed starting at the left corner full-thickness closure incorporating the posterior peritoneum and edge of the uterosacral ligament and tied via instrument tie. The closure was held on counter traction as a running continuous full-thickness closure was carried across the vaginal cuff to the contralateral corner where it was similarly fixed, secured, tied via instrument tie and the needle was cut and removed. The pelvis was thoroughly irrigated. The integrity of the bladder was confirmed by filling the bladder with saline dyed with methylene blue. The bladder distended nicely under pressure. No thin areas. No extravasation of dye with an intact bladder wall and a good margin between the vaginal cuff suture line and the bladder. Good peristalsis of ureters bilaterally and the bladder was drained. The pelvis was further irrigated. Small bleeders rendered hemostatic with bipolar cautery. Pathology came back showing a benign polyp. Therefore it was felt that all reasonable surgical objectives had been completed. Robotic instruments were removed. The robotic system was disengaged from the operative field. I reentered the bedside under sterile condition. Each of the three Ray-Georgette sponges were removed laparoscopically through the 12-mm cannula. Visual inspection confirmed there were no remaining foreign objects in the peritoneal cavity other than the intentionally placed Rush hemostatic agent which was placed across the vaginal cuff and lateral pelvic sidewalls. Preliminary counts were correct. The 12 mm fascial defect was closed with 0 Vicryl sutures using a needle passing apparatus and they were tied securely which rendered the fascia completely airtight and hemostatic. The remaining cannulas were withdrawn. Carbon dioxide gas was removed from the peritoneal cavity. 3-0 Vicryl subcutaneous, 3-0 Vicryl subcuticular and Steri-Strips were used to close the skin incisions. She was returned to dorsal lithotomy position. The vaginal cuff was well-supported. No vaginal lacerations. However, there was bleeding from the right corner of the vaginal cuff. This was addressed with [id number] 0 Vicryl suture tied securely through the mucosa and submucosa which rendered the cuff completely hemostatic. The remainder of the cuff and vaginal wall inspected. No lacerations, hemostatic. No remaining foreign objects in the vagina and the remainder of the Rush hemostatic agent was placed across the vaginal cuff. Final counts were correct. She was returned to dorsal supine position and was pending reversal of anesthesia when I left the operating room to precede her to the post-anesthesia care unit. MD BERNARDA Herr/TONIA /11:24 AM /8:24 PM
--- NOTE | 2017-01-09 08:37 | MD ---
cc: XIANG MYERS M.D., DONALD G. M.D. MOLPUS, KELLY L. MD ADMISSION DATE: 01/05/2017 DISCHARGE DATE: 01/06/2017 PROCEDURE 01/05/2017, robotic-assisted laparoscopic hysterectomy, bilateral salpingo-oophorectomy, lysis of adhesions. PRELIMINARY DIAGNOSIS Postmenopausal bleeding, cervical stenosis and large endometrial polyp. HOSPITAL COURSE She is doing well during the first 24 hours after surgery. She remained afebrile, pulse rate well-controlled 57-71, respirations 14-20, blood pressure 139-160 over 60-70, O2 saturations greater than or equal to 96% while awake. Ins and outs 3038/3275. Labs are pending at the time of this dictation. PHYSICAL EXAMINATION GENERAL: On exam she is alert and oriented x3. LUNGS: Her lungs are clear at the apices, rales at the bases. CARDIOVASCULAR: Has a baseline regular rate with some premature beats consistent with baseline but controlled rate and good blood pressure. ABDOMEN: Soft. Incisions are clean and dry. CLOTH FEEDER: No bleeding. EXTREMITIES: Nontender. ASSESSMENT Postoperative day #1 doing well in early postop period. Findings at the time of surgery and preliminary pathology reviewed, activities, restrictions discussed. Questions were answered. She is tolerating oral intake. Oliver catheter is removed and she is voiding, hemodynamically stable and should be ready for discharge to home. PLAN Therefore, I anticipate discharge to home. She is to call our office to schedule follow up in 2 weeks. She is to resume her prior medications. She will have a prescription for tramadol for pain and our office number is again made available, should she have any questions between now and the time of scheduled followup, she is instructed to call our office. MD BERNARDA Herr/TUNDE /7:08 AM /8:29 AM
== END 2017-01-06 11:24 | disposition home or self-care (01) ==
LOC: HSDC 05:30 → HSDI 10:47 → HOCA 14:27
PROVIDERS: ADMIT Obstetrics & Gynecology Gynecologic Oncology; ATTEND Obstetrics & Gynecology Gynecologic Oncology
DX: N95.0 Postmenopausal bleeding (principal); N84.0 Polyp of corpus uteri; N88.2 Stricture and stenosis of cervix uteri; I10 Essential (primary) hypertension; I25.2 Old myocardial infarction; E78.00 Pure hypercholesterolemia, unspecified; K21.9 Gastro-esophageal reflux disease without esophagitis; M06.9 Rheumatoid arthritis, unspecified; G47.30 Sleep apnea, unspecified; Z98.51 Tubal ligation status
CPT/HCPCS: 00840; 58552; 80048; 85025; 86850; 86900; 86901; 88112; 88307; 88329; 93005; 94150; G0378; J0131; J0690; J1100; J1170; J1644; J1720; J1885; J2250; J2370; J2405; J3010; J3480; J7120; 99285